=== PATIENT | female | born 1975 | race Caucasian/White ===

== ENCOUNTER 2022-08-07 14:09 | Outpatient (CLI) | payer OTHER, SELFPAY ==
--- NOTE | 2022-08-07 14:24 | CTR_ITS ---
PROCEDURE INFORMATION: Exam: CT Right Upper Extremity Without Contrast, Wrist Exam date and time: 08/07/2022 2:51 PM Age: 47 years old Clinical indication: Right; Patient HX: RT wrist pain with knot on medial side x 5 weeks-bb placed; Additional info: Right wrist pain TECHNIQUE: Imaging protocol: Computed tomography of the right upper extremity without contrast. Exam focused on the wrist. Radiation optimization: All CT scans at this facility use at least one of these dose optimization techniques: automated exposure control; mA and/or kV adjustment per patient size (includes targeted exams where dose is matched to clinical indication); or iterative reconstruction. REPORTING DATA: Count of CT and Cardiac NM exams in prior 12 months: This patient has received 0 known CTs and 0 known cardiac nuclear medicine studies in the 12 months prior to the current study. COMPARISON: No relevant prior studies available. RADIATION DOSE METRICS: Total DLP (mGy-cm): 94.98 FINDINGS: Bones/joints: See Soft tissues finding. Soft tissues: Deep to a cutaneous skin marker overlying the dorsum of the distal ulna, normal subcutaneous fat is seen with a normal appearance of the ulna without mass lesion, fluid collection or inflammation. A small vascular structure is seen in this region without abnormality. CT/CT wrist RT wo con* [id number] IMPRESSION: Deep to a cutaneous skin marker overlying the dorsum of the distal ulna, normal subcutaneous fat is seen with a normal appearance of the ulna without mass lesion, fluid collection or inflammation. A small vascular structure is seen in this region without abnormality.
== END 2022-08-07 14:10 | disposition home or self-care (01) ==
LOC: RAD 14:12
PROVIDERS: Visit Provider Family Medicine
DX: M25.531 Pain in right wrist (principal)
CPT/HCPCS: 73200